=== PATIENT | female | born 1985 | race Caucasian/White ===

== ENCOUNTER 2023-10-07 01:42 | Emergency (ER) | payer OTHER ==
[~2023-10-07] VITALS: Ht 165.1 cm; Wt 81.7 kg
[2023-10-07] MEDS ORDERED: FAMOTIDINE20 MG PO (02:01)
[2023-10-07 02:08] LABS: BILIRUBIN, URINE NEGATIVE (negative); BLOOD/HGB, URINE LARGE (Negative); KETONE, URINE NEGATIVE (Negative); LEUK ESTERASE, URINE SMALL (negative); NITRITE, URINE NEGATIVE (negative); PH, URINE 7.5 (5-7)
[2023-10-07] MEDS ORDERED: PYRIDIUM100 MG PO (02:11)
[2023-10-07] MEDS ORDERED: MACROBID 100 M100 MG PO (02:11)
[2023-10-07 02:22] LABS: EPITHELIAL CELLS, URINE SQUAMOUS 1+ /lpf (0-1+); WHITE BLOOD CELLS, URINE 21-40 /HPF (0-5)
[2023-10-07 02:23] LABS: BACTERIA, URINE 1+ /hpf (negative); CASTS, URINE NONE SEEN \\lpf; COLLECTION TYPE, URINE CLEAN CATCH; CRYSTALS, URINE NONE SEEN (0-1+); RED BLOOD CELLS, URINE 41-50 /hpf (0-5); REFLEX CULTURE, URINE Yes (No)
[2023-10-07 02:36] VITALS: BP 128/82
== END 2023-10-07 02:38 | disposition home or self-care (01) ==
LOC: ED 01:42
PROVIDERS: Internal Medicine
DX: N39.0 Urinary tract infection, site not specified (principal); Z79.899 Other long term (current) drug therapy
CPT/HCPCS: 81001; 84703

== ENCOUNTER 2023-10-30 18:35 | Emergency (ER) | payer OTHER ==
[~2023-10-30] VITALS: Ht 165.1 cm; Wt 81.7 kg
[~2023-10-30 18:35] MED LIST: FAMOTIDINE20 MG PO; MACROBID 100 M100 MG PO; PYRIDIUM100 MG PO
--- OUTSIDE RECORDS SUMMARY | 2023-10-30 18:43 | XMS ---
PreManage Notification: REINALDO MAHMOOD Security Research Pharmacist Events No recent Security Events currently on file CRITERIA MET - [facility] - 2 Visits in 30 Days CARE PROVIDERS -[place]- Dentist: Rice Drier Operator [facility] PHONE: [phone] [facility] PHONE: [phone] ANI CURTIS Software Maintenance Engineer Current PHONE: Unknown Kerri has no Care Guidelines for this patient. E.Guzman VISIT COUNT (12 MO.) 2 TROY Robbmaria de jesus ValadezJavier - [place] TOTAL 3 NOTE: Visits indicate total known visits. ED/UCC VISIT TRACKING (12 MO.) 10/30/2023 18:36 [facility] [place] TYPE: Emergency COMPLAINT: - URINE PROBLEM 10/07/2023 01:42 [facility] [place] TYPE: Emergency COMPLAINT: - URINE PROBLEM DIAGNOSES: - Other intermediate manager (current) drug therapy - Urinary tract infection, site not specified 01/16/2023 11:43 [facility] - [place] TYPE: Emergency DIAGNOSES: - Sprain of unspecified ligament of left ankle, initial encounter INPATIENT VISIT TRACKING (12 MO.) No inpatient visits to display in this time frame [email or web address]
[2023-10-30 19:42] LABS: BILIRUBIN, URINE NEGATIVE (negative); BLOOD/HGB, URINE LARGE (Negative); KETONE, URINE NEGATIVE (Negative); LEUK ESTERASE, URINE TRACE (negative); NITRITE, URINE POSITIVE (negative); PH, URINE 6.5 (5-7)
[2023-10-30 19:48] LABS: BACTERIA, URINE 1+ /hpf (negative); CASTS, URINE NONE SEEN \\lpf; COLLECTION TYPE, URINE CLEAN CATCH; CRYSTALS, URINE NONE SEEN (0-1+); EPITHELIAL CELLS, URINE NONE SEEN /lpf (0-1+); REFLEX CULTURE, URINE Yes (No); WHITE BLOOD CELLS, URINE 41-50 /HPF (0-5)
[2023-10-30] MEDS ORDERED: BACTRIM DS TAB1 EACH PO (21:58)
[2023-10-30] MEDS ORDERED: TRIMETHOPRIM/SULFAMETHOXAZOLE 1 EA TAB PO ONE (22:00)
[2023-10-30] MEDS ORDERED: PHENAZOPYRIDINE HCL 95 MG TAB PO ONE (22:00)
[2023-10-30 22:06] VITALS: BP 124/76
== END 2023-10-30 22:07 | disposition home or self-care (01) ==
LOC: ED 18:35
PROVIDERS: Internal Medicine
DX: N39.0 Urinary tract infection, site not specified (principal)
CPT/HCPCS: 81001; 87088; 99283; A9270